=== PATIENT | male | born 1925 | race Caucasian/White ===

== ENCOUNTER 2017-07-13 09:38 | Inpatient (IN) | payer OTHER ==
[~2017-07-13] VITALS: Ht 165.1 cm; Wt 50.5 kg
[~2017-07-13 09:38] MED LIST: AMOX1TAB64 PO; BENZ-17 PO; GLIP5TAB10 PO; GLIP5TAB3 PO; GUAI200T3 PO; METF500T4 PO; METO25TA35 PO
[2017-07-13] MEDS ORDERED: ALBUTEROL SULFATE 2.5 MG/3 ML ONE (10:18)
[2017-07-13] MEDS ORDERED: ALBUTEROL SULFATE 2.5 MG/3 ML NPPB ONE (10:30)
[2017-07-13] MEDS ORDERED: AZITHROMYCIN 500 MG TABLET PO ONE (11:00)
[2017-07-13] MEDS ORDERED: SODIUM CHLORIDE FLUSH 10ML SYR IVF ONE (11:30)
[2017-07-13] MEDS ORDERED: CEFTRIAXONE PMX 1GM/50ML 50 ML IVPB ONE (11:30)
[2017-07-13] MEDS ORDERED: AZITHROMYCIN 500 MG in SODIUM CHLORIDE 0.9% 250 ML IV ONE (11:30)
[2017-07-13] MEDS ORDERED: SODIUM CHLORIDE 0.9% 1,000ML IVBOLUS ONE (11:30)
[2017-07-13] MEDS ORDERED: CEFTRIAXONE PMX 1GM/50ML 50 ML ONE (11:33)
[2017-07-13 12:05] LABS: BASOPHILS # (AUTO) 0.02 x10^3/uL (0-0.1); BASOPHILS % (AUTO) 0 % (0-1); EOSINOPHILS % (AUTO) 0 % (1-7); LYMPHOCYTES # (AUTO) 1.59 x10^3/uL (1-3.4); LYMPHOCYTES % (AUTO) 13 % (22-44); MD NO; MEAN CORPUSCULAR HEMOGLOBIN 25.8 pg (27.5-34.5); MEAN CORPUSCULAR HGB CONC 32.8 g/dL (33.2-36.2); MEAN CORPUSCULAR VOLUME 78.8 fL (81-97); MEAN PLATELET VOLUME 8.8 fL (7.4-10.4); MONOCYTES # (AUTO) 0.38 x10^3/uL (0.2-0.8); MONOCYTES % (AUTO) 3 % (2-9); NEUTROPHILS # (AUTO) 10.38 x10^3/uL (1.8-6.8); NEUTROPHILS % (AUTO) 84 % (42-75); PLATELET COUNT 201 x10^3/uL (130-400); RED BLOOD COUNT 5.59 x10^6/uL (4.38-5.82); RED CELL DISTRIBUTION WIDTH 15.4 % (9.4-14.8)
[2017-07-13 12:19] LABS: ANION GAP 13 mmol/L (5-15); CALCIUM 8.5 mg/dL (8.5-10.1); CHLORIDE 105 mmol/L (98-107); CREATININE 1.52 mg/dL (0.7-1.3)
[2017-07-13] MEDS: GUAIFENESIN/DM 200-20MG, 10ML UDC PO PRN (16:43)
[2017-07-13] MEDS ORDERED: ONDANSETRON 2MG/ML, 2ML IVPush PRN (18:30)
[2017-07-13] MEDS ORDERED: ACETAMINOPHEN 325 MG TABLET PO PRN (18:30)
[2017-07-13] MEDS: ALBUTEROL/IPRATROPIUM 2.5MG/0.5MG, 3 ML HHN SCH (18:30)
[2017-07-13] MEDS ORDERED: ALBUTEROL/IPRATROPIUM 2.5MG/0.5MG, 3 ML NPPB PRN (18:30)
[2017-07-13 19:05] VITALS: BP 117/71
[2017-07-13] MEDS: HEPARIN 5,000 UNITS/ML, 1ML SQ SCH (19:51)
[2017-07-13] MEDS: methylPREDNISolone SOD SUCC 125 MG/2 ML IVPush SCH (19:52)
[2017-07-13] MEDS: SODIUM CHLORIDE 0.9% 1,000 ML IV SCH (19:52)
[2017-07-13] MEDS: INSULIN REGULAR 100 UNITS/ML, 3ML VIAL SQ-INSULIN SCH (22:27)
[2017-07-14] MEDS: ALBUTEROL/IPRATROPIUM 2.5MG/0.5MG, 3 ML HHN SCH ×2 (00:30→06:30)
[2017-07-14 01:34] VITALS: BP 114/73
[2017-07-14] MEDS: methylPREDNISolone SOD SUCC 125 MG/2 ML IVPush SCH ×3 (03:49→20:33)
[2017-07-14] MEDS: METOPROLOL TARTRATE 25 MG TABLET PO SCH ×2 (05:51→17:11)
[2017-07-14 06:40] VITALS: BP 113/69
[2017-07-14] MEDS: HEPARIN 5,000 UNITS/ML, 1ML SQ SCH ×2 (08:09→20:33)
[2017-07-14] MEDS: SODIUM CHLORIDE 0.9% 1,000 ML IV SCH (08:09)
[2017-07-14] MEDS: INSULIN REGULAR 100 UNITS/ML, 3ML VIAL SQ-INSULIN SCH ×4 (08:10→20:50)
[2017-07-14 11:28] LABS: ANION GAP 7 mmol/L (5-15); CHLORIDE 109 mmol/L (98-107); CREATININE 1.14 mg/dL (0.7-1.3)
[2017-07-14] MEDS: CEFTRIAXONE PMX 2GM/50ML 50 ML IV SCH (11:59)
[2017-07-14] MEDS: AZITHROMYCIN 500 MG in SODIUM CHLORIDE 0.9% 250 ML IV SCH (12:02)
[2017-07-14 12:28] VITALS: BP 130/70
[2017-07-14 20:30] VITALS: BP 102/62
[2017-07-15 01:29] VITALS: BP 123/70
[2017-07-15] MEDS: SODIUM CHLORIDE 0.9% 1,000 ML IV SCH (01:29)
[2017-07-15] MEDS: methylPREDNISolone SOD SUCC 125 MG/2 ML IVPush SCH ×2 (04:34→16:12)
[2017-07-15] MEDS: METOPROLOL TARTRATE 25 MG TABLET PO SCH ×2 (05:57→18:15)
[2017-07-15 07:08] LABS: ANION GAP 8 mmol/L (5-15); CALCIUM 8.2 mg/dL (8.5-10.1); CHLORIDE 111 mmol/L (98-107); CREATININE 1.12 mg/dL (0.7-1.3)
[2017-07-15 07:41] VITALS: BP 150/77
[2017-07-15] MEDS: INSULIN REGULAR 100 UNITS/ML, 3ML VIAL SQ-INSULIN SCH ×4 (08:01→20:07)
[2017-07-15] MEDS: HEPARIN 5,000 UNITS/ML, 1ML SQ SCH ×2 (08:02→20:06)
[2017-07-15] MEDS: CEFTRIAXONE PMX 2GM/50ML 50 ML IV SCH (11:48)
[2017-07-15 12:21] VITALS: BP 133/66
[2017-07-15] MEDS: AZITHROMYCIN 500 MG in SODIUM CHLORIDE 0.9% 250 ML IV SCH (12:58)
[2017-07-15] MEDS: GUAIFENESIN/DM 200-20MG, 10ML UDC PO PRN (16:27)
[2017-07-15 20:18] VITALS: BP 135/66
[2017-07-16 01:40] VITALS: BP 125/62
[2017-07-16] MEDS: GUAIFENESIN/DM 200-20MG, 10ML UDC PO PRN ×3 (01:58→20:25)
[2017-07-16] MEDS: methylPREDNISolone SOD SUCC 125 MG/2 ML IVPush SCH ×3 (04:10→20:25)
[2017-07-16] MEDS: METOPROLOL TARTRATE 25 MG TABLET PO SCH ×2 (05:52→17:46)
[2017-07-16 07:50] VITALS: BP 147/76
[2017-07-16] MEDS: HEPARIN 5,000 UNITS/ML, 1ML SQ SCH ×2 (08:28→20:25)
[2017-07-16] MEDS: INSULIN REGULAR 100 UNITS/ML, 3ML VIAL SQ-INSULIN SCH ×4 (09:14→20:26)
[2017-07-16] MEDS: CEFTRIAXONE PMX 2GM/50ML 50 ML IV SCH (12:31)
[2017-07-16 13:20] VITALS: BP 117/67
[2017-07-16] MEDS: AZITHROMYCIN 500 MG in SODIUM CHLORIDE 0.9% 250 ML IV SCH (14:01)
[2017-07-16 19:09] VITALS: BP 126/64
[2017-07-17 02:03] VITALS: BP 129/73
[2017-07-17] MEDS: methylPREDNISolone SOD SUCC 125 MG/2 ML IVPush SCH (04:04)
[2017-07-17 05:17] LABS: BASOPHILS # (AUTO) 0.02 x10^3/uL (0-0.1); BASOPHILS % (AUTO) 0 % (0-1); EOSINOPHILS % (AUTO) 0 % (1-7); LYMPHOCYTES # (AUTO) 1.89 x10^3/uL (1-3.4); LYMPHOCYTES % (AUTO) 16 % (22-44); MD NO; MEAN CORPUSCULAR HEMOGLOBIN 25.9 pg (27.5-34.5); MEAN CORPUSCULAR HGB CONC 32.9 g/dL (33.2-36.2); MEAN CORPUSCULAR VOLUME 78.6 fL (81-97); MEAN PLATELET VOLUME 8.5 fL (7.4-10.4); MONOCYTES # (AUTO) 0.25 x10^3/uL (0.2-0.8); MONOCYTES % (AUTO) 2 % (2-9); NEUTROPHILS # (AUTO) 9.48 x10^3/uL (1.8-6.8); NEUTROPHILS % (AUTO) 81 % (42-75); PLATELET COUNT 204 x10^3/uL (130-400); RED BLOOD COUNT 5.05 x10^6/uL (4.38-5.82); RED CELL DISTRIBUTION WIDTH 14.7 % (9.4-14.8)
[2017-07-17 05:29] LABS: CHLORIDE 107 mmol/L (98-107)
[2017-07-17] MEDS: METOPROLOL TARTRATE 25 MG TABLET PO SCH ×2 (05:34→17:35)
[2017-07-17 05:39] LABS: ANION GAP 8 mmol/L (5-15); CALCIUM 8.1 mg/dL (8.5-10.1); CREATININE 1.13 mg/dL (0.7-1.3)
[2017-07-17 07:54] VITALS: BP 147/72
[2017-07-17] MEDS: INSULIN REGULAR 100 UNITS/ML, 3ML VIAL SQ-INSULIN SCH ×4 (08:57→21:04)
[2017-07-17] MEDS: HEPARIN 5,000 UNITS/ML, 1ML SQ SCH ×2 (08:58→21:03)
[2017-07-17] MEDS: CEFTRIAXONE PMX 2GM/50ML 50 ML IV SCH (12:40)
[2017-07-17 13:54] VITALS: BP 121/66
[2017-07-17] MEDS: AZITHROMYCIN 500 MG in SODIUM CHLORIDE 0.9% 250 ML IV SCH (14:30)
[2017-07-17] MEDS: GUAIFENESIN/DM 200-20MG, 10ML UDC PO PRN (14:31)
[2017-07-17 19:53] VITALS: BP 148/80
[2017-07-17] MEDS ORDERED: INSULIN ASPART 100 UNITS/ML, PEN SQ-INSULIN SCH (21:00)
[2017-07-18 02:00] VITALS: BP 143/75
[2017-07-18] MEDS: METOPROLOL TARTRATE 25 MG TABLET PO SCH ×2 (06:05→17:33)
[2017-07-18 06:15] LABS: ANION GAP 8 mmol/L (5-15); CALCIUM 8.1 mg/dL (8.5-10.1); CHLORIDE 108 mmol/L (98-107)
[2017-07-18 06:19] LABS: CREATININE 1.08 mg/dL (0.7-1.3)
[2017-07-18 06:23] LABS: MEAN CORPUSCULAR HGB CONC 33.2 g/dL (33.2-36.2); MEAN CORPUSCULAR VOLUME 78.3 fL (81-97); MEAN PLATELET VOLUME 8.1 fL (7.4-10.4); PLATELET COUNT 215 x10^3/uL (130-400); RED BLOOD COUNT 5.22 x10^6/uL (4.38-5.82); RED CELL DISTRIBUTION WIDTH 14.6 % (9.4-14.8)
[2017-07-18 06:52] LABS: BASOPHILS % (AUTO) 0 % (0-1); EOSINOPHILS % (AUTO) 0 % (1-7); LYMPHOCYTES # (AUTO) 2.09 x10^3/uL (1-3.4); LYMPHOCYTES % (AUTO) 12 % (22-44); MD SCAN; MONOCYTES # (AUTO) 0.93 x10^3/uL (0.2-0.8); MONOCYTES % (AUTO) 5 % (2-9); NEUTROPHILS # (AUTO) 14.29 x10^3/uL (1.8-6.8); NEUTROPHILS % (AUTO) 83 % (42-75)
[2017-07-18 06:58] VITALS: BP 182/89
[2017-07-18] MEDS: INSULIN REGULAR 100 UNITS/ML, 3ML VIAL SQ-INSULIN SCH ×4 (07:00→21:54)
[2017-07-18] MEDS ORDERED: POTASSIUM CHLORIDE 20 MEQ TAB.ER.PRT PO ONE (08:00)
[2017-07-18] MEDS: GUAIFENESIN/DM 200-20MG, 10ML UDC PO PRN (08:39)
[2017-07-18] MEDS: HEPARIN 5,000 UNITS/ML, 1ML SQ SCH ×2 (08:39→21:55)
[2017-07-18] MEDS: AMLODIPINE 5 MG TABLET PO SCH (10:14)
[2017-07-18] MEDS: CEFTRIAXONE PMX 2GM/50ML 50 ML IV SCH (13:27)
[2017-07-18 13:36] VITALS: BP 148/79
[2017-07-18] MEDS: AZITHROMYCIN 500 MG in SODIUM CHLORIDE 0.9% 250 ML IV SCH (14:45)
[2017-07-18 18:50] VITALS: BP 160/76
[2017-07-19 01:15] VITALS: BP 144/70
[2017-07-19] MEDS: METOPROLOL TARTRATE 25 MG TABLET PO SCH ×2 (05:55→17:25)
[2017-07-19] MEDS: INSULIN REGULAR 100 UNITS/ML, 3ML VIAL SQ-INSULIN SCH ×4 (07:00→19:54)
[2017-07-19 07:04] VITALS: BP 145/90
[2017-07-19] MEDS ORDERED: GUAI5SYR PO (08:15)
[2017-07-19] MEDS ORDERED: IPRA3AMP NPPB (08:15)
[2017-07-19] MEDS ORDERED: PRED20TA PO (08:15)
[2017-07-19] MEDS ORDERED: AMLO5TAB2 PO (08:15)
[2017-07-19] MEDS: AMLODIPINE 5 MG TABLET PO SCH (08:26)
[2017-07-19] MEDS: HEPARIN 5,000 UNITS/ML, 1ML SQ SCH ×2 (08:26→19:54)
[2017-07-19] MEDS ORDERED: CEFD300C37 PO (09:12)
[2017-07-19 09:46] LABS: ANION GAP 7 mmol/L (5-15); CALCIUM 7.9 mg/dL (8.5-10.1); CHLORIDE 104 mmol/L (98-107); CREATININE 0.84 mg/dL (0.7-1.3)
[2017-07-19 09:51] LABS: BASOPHILS # (AUTO) 0.02 x10^3/uL (0-0.1); BASOPHILS % (AUTO) 0 % (0-1); EOSINOPHILS # (AUTO) 0.05 x10^3/uL (0-0.4); EOSINOPHILS % (AUTO) 0 % (1-7); LYMPHOCYTES # (AUTO) 2.87 x10^3/uL (1-3.4); LYMPHOCYTES % (AUTO) 24 % (22-44); MD NO; MEAN CORPUSCULAR HEMOGLOBIN 25.8 pg (27.5-34.5); MEAN CORPUSCULAR HGB CONC 32.9 g/dL (33.2-36.2); MEAN CORPUSCULAR VOLUME 78.3 fL (81-97); MEAN PLATELET VOLUME 7.9 fL (7.4-10.4); MONOCYTES # (AUTO) 0.75 x10^3/uL (0.2-0.8); MONOCYTES % (AUTO) 6 % (2-9); NEUTROPHILS # (AUTO) 8.26 x10^3/uL (1.8-6.8); NEUTROPHILS % (AUTO) 69 % (42-75); PLATELET COUNT 232 x10^3/uL (130-400); RED BLOOD COUNT 5.37 x10^6/uL (4.38-5.82); RED CELL DISTRIBUTION WIDTH 14.9 % (9.4-14.8)
[2017-07-19] MEDS ORDERED: CALCIUM CITRATE 950 MG TABLET PO ONE (11:00)
[2017-07-19] MEDS: CEFDINIR 300 MG CAPSULE PO SCH ×2 (11:39→19:45)
[2017-07-19 12:39] VITALS: BP 141/79
[2017-07-19 19:13] VITALS: BP 111/65
[2017-07-19] MEDS: GUAIFENESIN/DM 200-20MG, 10ML UDC PO PRN (19:45)
[2017-07-20 04:21] VITALS: BP 168/89
[2017-07-20] MEDS: GUAIFENESIN/DM 200-20MG, 10ML UDC PO PRN (04:31)
[2017-07-20] MEDS: METOPROLOL TARTRATE 25 MG TABLET PO SCH (06:00)
[2017-07-20] MEDS: INSULIN REGULAR 100 UNITS/ML, 3ML VIAL SQ-INSULIN SCH ×2 (06:47→12:39)
[2017-07-20 07:14] VITALS: BP 155/76
[2017-07-20] MEDS: HEPARIN 5,000 UNITS/ML, 1ML SQ SCH (10:05)
[2017-07-20] MEDS: AMLODIPINE 5 MG TABLET PO SCH (10:06)
[2017-07-20] MEDS: CEFDINIR 300 MG CAPSULE PO SCH (10:06)
[2017-07-20] MEDS ORDERED: GUAIFENESIN/COD200MG-20MG/10ML LIQUID PO SCH (11:30)
[2017-07-20] MEDS ORDERED: PHENOL THROAT SPRAY BOTTLE MM PRN (11:30)
[2017-07-20 13:01] VITALS: BP 134/64
[2017-07-20] MEDS ORDERED: BENZONATATE 100 MG CAPSULE PO SCH (16:00)
== END 2017-07-20 17:53 | DRG 871 ==
LOC: ED 12:37 → EDIP 12:38 → ED 12:46 → 3NE 14:15
PROVIDERS: ADMIT Family Medicine; ATTEND Family Medicine
DX: A41.9 Sepsis, unspecified organism (principal); J18.9 Pneumonia, unspecified organism; J96.01 Acute respiratory failure with hypoxia; I11.0 Hypertensive heart disease with heart failure; N17.9 Acute kidney failure, unspecified; E11.9 Type 2 diabetes mellitus without complications; I50.9 Heart failure, unspecified; R65.20 Severe sepsis without septic shock
CPT/HCPCS: 36415; 71010; 80048; 82040; 82962; 83605; 83735; 83880; 84145; 85025; 87040; 93005; 94640; 96365; 96375; J0456; J0696; J1644; J1815; J7613; J2930; J7030; J7050; J7512

== ENCOUNTER 2017-10-23 13:22 | Emergency (ER) | payer OTHER ==
[~2017-10-23] VITALS: Ht 165.1 cm; Wt 44.0 kg
[~2017-10-23 13:22] MED LIST changes: +AMLO5TAB2 PO; +CEFD300C37 PO; +GUAI5SYR PO; +IPRA3AMP NPPB; +PRED20TA PO
[2017-10-23] MEDS ORDERED: DIPH,PERTUSS(ACELL),TET VAC/PF 0.5 ML IM-VACC ONE ×2 (14:00→14:17)
[2017-10-23] MEDS ORDERED: LIDOCAINE-MPF 1%, 5ML INFIL ONE (14:00)
[2017-10-23] MEDS ORDERED: LIDOCAINE-MPF 1%, 5ML ONE ×2 (14:17→14:30)
[2017-10-23 15:45] VITALS: BP 149/86
== END 2017-10-23 17:21 | disposition home or self-care (01) ==
LOC: ED 14:17
DX: S06.0X0A Concussion without loss of consciousness, initial encounter (principal); S01.112A Laceration without foreign body of left eyelid and periocular area, initial encounter; S61.412A Laceration without foreign body of left hand, initial encounter; E11.9 Type 2 diabetes mellitus without complications; Z79.84 Long term (current) use of oral hypoglycemic drugs; Z86.73 Personal history of transient ischemic attack (TIA), and cerebral infarction without residual deficits; W01.0XXA Fall on same level from slipping, tripping and stumbling without subsequent striking against object, initial encounter; Y93.01 Activity, walking, marching and hiking; Y99.8 Other external cause status; Y92.89 Other specified places as the place of occurrence of the external cause
CPT/HCPCS: 12002; 12051; 70450; 72125; 90471; 90715; 93005